=== PATIENT | female | born 2000 | race Caucasian/White ===

== ENCOUNTER 2022-01-05 01:42 | Emergency (ER) | payer MEDICAID, SELFPAY ==
[2022-01-05 01:51] VITALS: BP 128/85; PULSE 105; RESP 20; TEMP 36.2; O2SAT 94; BMI 32.1
--- NOTE | 2022-01-05 01:56 | XRR_ITS ---
PROCEDURE INFORMATION: Exam: XR Chest Exam date and time: 01/05/2022 2:04 AM Age: 21 years old Clinical indication: Shortness of breath TECHNIQUE: Imaging protocol: Radiologic exam of the chest. Views: 1 view. COMPARISON: No relevant prior studies available. FINDINGS: Lungs: There are normal lung volumes without interstitial or airspace opacities. Pleural spaces: There are no pleural effusions or pneumothorax. Heart/Mediastinum: The heart size is normal. The mediastinal contour is normal. The trachea is in the midline. Bones/joints: No acute abnormalities. XR/XR chest 1V portable [id number] IMPRESSION: No chest radiographic evidence of acute cardiopulmonary disease.
--- NOTE | 2022-01-05 01:57 | W.ED.CHESTPA ---
HPI - Chest Pain General: Chief Complaint: Chest Pain Stated Complaint: Chest pain and SOB Time Seen by Provider: 01/05/22 01:50 History of Present Illness: 21-year-old female comes in today with complaints of shortness of breath and chest discomfort with deep inspiration. Patient does admit to vaping and using marijuana regularly. Patient appears nontoxic. Patient appears in mild to no pain. Associated symptoms: Reports dyspnea Review of Systems Card: Reports: chest pain Resp: Reports: dyspnea Physical Exam Const: COMMON NORMALS: no acute distress HENMT: COMMON NORMALS: normocephalic HEAD & SCALP: normocephalic Neck/C-Spine: COMMON NORMALS: full ROM Lymph: LYMPHATIC: no lymphadenopathy noted Resp: EFFORT & INSPECTION: Yes able to speak in complete sentences AUSCULTATION: wheezes Cardio: COMMON NORMALS: regular rhythm RATE: tachycardic RHYTHM: regular rhythm GI: COMMON NORMALS: Soft to palpation and non-tender PALPATION: Yes Soft to palpation Extremity: COMMON NORMALS: normal to inspection Neuro: LISANDRA COMA SCALE: document GCS findings [place] coma scale eye opening: Spontaneous Lisandra coma scale verbal response: Orientated [place] coma scale motor response: Obey commands Lisandra coma scale total score: 15 GAIT: Yes Normal gait present Skin: COMMON NORMALS: no rashes or lesions noted GENERAL SKIN EXAM: no rashes or lesions noted Course Vital Signs: Vital signs: Vital Signs Temperature 97.1 F L 01/05/22 01:51 Pulse Rate 111 H 01/05/22 02:13 Respiratory Rate 18 01/05/22 02:13 Blood Pressure 128/85 01/05/22 01:51 Pulse Oximetry 95 01/05/22 02:13 Oxygen Delivery Mn thod 01/05/22 02:13 MDM - Chest Pain Medical Decision Making 21-year-old female comes in today with complaints of shortness of breath, cough, pain with deep inspiration. On exam patient has wheezing throughout all lung aldridge. Patient has some mild chest wall tenderness to palpation. Vital signs are normal except for some mild elevation in pulse at 105 bpm. Differential diagnosis includes pneumonia, asthma, bronchitis. EKG showed a sinus tachycardia, chest x-ray was unremarkable. Believe the patient probably has an exacerbation of reactive airway disease. Recommend cessation of smoking. Use albuterol inhaler and steroids. Follow-up with primary care for further instructions. Imaging Data CXR: My impression: No obvious infiltrate or consolidations. EKG Data EKG 1: EKG interpretation date: 01/05/22 EKG interpretation time: 02:02 Prior EKG tracings: not available for review Interpretation: EKG shows a sinus rhythm with tachycardia at 104 bpm and regular. Occasional premature ectopic complexes noted no ST elevation is noted. No prior exam was available for comparison. Discharge Plan Discharge Patient Disposition: Home Clinical Impression: Reactive airway disease with acute exacerbation Qualifiers: Asthma severity: moderate Asthma persistence: persistent Qualified Code(s): J45.41 - Moderate persistent asthma with (acute) exacerbation Condition: Stable Prescriptions: New albuterol sulfate 90 mcg/actuation HFA aerosol inhaler 2 inh inhalation Q4H PRN (Reason: shortness of breath or wheezing) Qty: 8.5 0RF prednisone 20 mg tablet 20 mg PO BID 5 Days Qty: 10 0RF Discharge Orders: Discharge ED (Routine); Ordered 01/05/22 Ordered By: Last Laws Discharge Diet: Usual diet Discharge Activity: Increase activity as tolerated Patient Instructions: Reactive Airways Disease (ED) Activity Restrictions/Additional Instructions: Encourage plenty of fluids. Use albuterol inhaler 2 puffs every 4 hours as needed for wheezing or shortness of breath. Take steroids 1 tablet twice a day for the next 5 days. Follow-up with primary care in 3 to 5 days for recheck. Return to ER for worsening shortness of breath, fever greater than 100.3, or new concerns. 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
[2022-01-05] MEDS: predniSONE 20 mg Tablet 60 MG PO (02:07)
[2022-01-05] MEDS: albuterol 8 gm MDI 2 PUFF INHALATION (02:12)
[2022-01-05] MEDS: ipratropium-albuterol 3 mL Neb INHALATION (02:12)
[2022-01-05 02:13] VITALS: PULSE 111; RESP 18; O2SAT 95
[2022-01-05 02:25] VITALS: BP 119/81; PULSE 106; RESP 17; TEMP 36.8; O2SAT 95
[2022-01-05 02:32] VITALS: BP 119/81; PULSE 106; RESP 17; TEMP 36.8; O2SAT 95
--- NOTE | 2022-01-05 08:04 | ECG_ITS ---
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 Measurements Intervals Stamps Rate: 104 P: 72 HI: 136 QRS: 91 QRSD: 89 T: 75 QT: 342 QTc: 451 Interpretive Statements SINUS TACHYCARDIA WITH OCCASIONAL ECTOPIC PREMATURE COMPLEXES BORDERLINE RIGHT AXIS DEVIATION [QRS AXIS > 90] No previous ECG available for comparison Electronically Signed On 01-05-2022 17:50:31 CDT by Mesfin Christianson M.D. [id number]
== END 2022-01-05 02:37 | disposition home or self-care (01) ==
PROVIDERS: Emergency Provider Nurse Practitioner Family
DX: J45.41 Moderate persistent asthma with (acute) exacerbation (principal)
CPT/HCPCS: 71045; 93005; 94640; 99284; J3535; J7512